=== PATIENT | female | born 1965 | race Caucasian/White ===

== ENCOUNTER 2018-08-28 12:46 | Inpatient (IN) | payer BC, OTHER ==
[~2018-08-28] VITALS: Ht 152.4 cm; Wt 143.7 kg
[~2018-08-28 12:46] MED LIST: AMLO10TA PO; AMLO5TAB6 PO; AZIT-12 PO; LASI40TA9 PO; MICA80TA PO; OMEP40CA2 PO; PRED-351 PO; SERT-138 PO
[2018-08-28] MEDS ORDERED: PANT40TA3 PO (13:17)
[2018-08-28] MEDS ORDERED: [UNRECOGNIZED DRUG - OTHER] PO (13:17)
[2018-08-28] MEDS ORDERED: IPRATROPIUM 0.5MG/ALBUTEROL 2.5MG INH SOL UD 3ML (DUONEB)(J7620) NEB ONE (13:30)
[2018-08-28] MEDS ORDERED: NS 1,000 ML IV SCH (13:33)
[2018-08-28] MEDS ORDERED: ACETAMINOPHEN 325 MG TAB PO ONE (13:45)
[2018-08-28] MEDS: IPRATROPIUM 0.5MG/ALBUTEROL 2.5MG INH SOL UD 3ML (DUONEB)(J7620) NEB PRN ×2 (13:48→14:21)
[2018-08-28 14:07] LABS: BASO % 0.6 % (0.0-1.0); EOS % 0.3 % (0.0-3.0); HEMATOCRIT 37.1 % (36.0-47.0); HEMOGLOBIN 12.3 g/dl (12.0-15.5); LYMPH % 14.5 % (24.0-44.0); MEAN CORPUSCULAR HEMOGLOBIN 30.1 pg (27.0-33.0); MEAN CORPUSCULAR HGB CONC 33.2 g/dl (32.0-36.5); MEAN CORPUSCULAR VOLUME 90.9 fl (80.0-96.0); MONO # 0.5 10^3/uL (0.0-0.8); MONO % 7.3 % (0.0-5.0); NEUTROPHILS # 5.3 10^3/uL (1.8-7.7); NEUTROPHILS % 76.2 % (36.0-66.0); PLATELET COUNT, AUTOMATED 181 10^3/uL (150-450); RED BLOOD COUNT 4.08 10^6/uL (4.00-5.40)
[2018-08-28 14:10] LABS: VENOUS BASE EXCESS 0.5 (-2.0-2.0); VENOUS HCO3 24.5 MEQ/L (23.0-27.0); VENOUS O2 SATURATION 98.3 % (60.0-80.0); VENOUS PARTIAL PRESSURE CO2 37.2 mmHg (38.0-50.0); VENOUS PARTIAL PRESSURE O2 106.8 mmHg (30.0-50.0); VENOUS PH 7.436 UNITS (7.330-7.430); VENOUS TOTAL CO2 25.6 MEQ/L (24.0-28.0)
[2018-08-28 14:19] LABS: INR 1.09; PROTHROMBIN TIME 13.8 SECONDS (11.8-14.0)
[2018-08-28 14:33] LABS: INFLUENZA A AMPLIFICATION NEGATIVE (NEGATIVE); INFLUENZA B AMPLIFICATION NEGATIVE (NEGATIVE)
[2018-08-28 14:35] LABS: ALBUMIN 3.3 GM/DL (3.2-5.2); ALT/SGPT 38 U/L (12-78); BILIRUBIN,DIRECT 0.3 MG/DL (0.0-0.2); BLOOD UREA NITROGEN 13 MG/DL (7-18); CALCIUM LEVEL 8.8 MG/DL (8.5-10.1); CARBON DIOXIDE LEVEL 26 MEQ/L (21-32); CHLORIDE LEVEL 101 MEQ/L (98-107); CK-MB VALUE MASS < 1.0 NG/ML (<3.6); CPK CREATINE PHOSPHOKINASE 148 U/L (26-192); CREATININE FOR GFR 0.81 MG/DL (0.55-1.30); GLOMERULAR FILTRATION RATE > 60.0 (>51); GLUCOSE, FASTING 132 MG/DL (70-100); MB/CK RELATIVE INDEX 0.68 (< OR =4); NT-PRO BNP 1264 PG/ML (<125); SODIUM LEVEL 134 MEQ/L (136-145); TOTAL PROTEIN 7.2 GM/DL (6.4-8.2); TROPONIN I < 0.02 NG/ML (< 0.10)
[2018-08-28] MEDS ORDERED: AZITHROMYCIN INJ 500 MG, VIAL MATE ADAPTER 1 EACH in D5W 250 ML IV ONE (15:00)
[2018-08-28] MEDS ORDERED: cefTRIAXone SOD 1 GM in D5W MINI-BAG PLUS 50 ML IV ONE (15:00)
--- NOTE | 2018-08-28 15:01 | REP ---
CHEST, TWO VIEWS: Two views of the chest performed. Cardiomegaly is noted with vascular congestion. Bilateral infiltrates are seen inferiorly. The findings suggest congestive heart failure and pulmonary edema. Electronically Signed by Dominic Blum MD 08/30/2018 10:18 A
[2018-08-28] MEDS ORDERED: AMLO10TA5 PO (15:23)
[2018-08-28] MEDS ORDERED: FURO20TA2 PO (15:23)
[2018-08-28] MEDS ORDERED: DRIS50003 PO (15:23)
[2018-08-28] MEDS ORDERED: ACET1TAB55 PO (15:23)
[2018-08-28] MEDS ORDERED: ACETAMINOPHEN TAB 650MG DOSE (2X325MG) PO PRN (16:45)
[2018-08-28] MEDS ORDERED: ONDANSETRON 4MG/2ML VIAL (J2405) IV PRN (16:45)
--- NOTE | 2018-08-28 17:17 | HPEPDOC ---
General Date of Admission 08/28/2018 Date of Service: Aug 28, 2018 Chief Complaint The patient is a 52-year-old female admitted with a reason for visit of Loss Of Appetite, Weakness, Fatigue. Source: Patient, Family, Old records Exam Limitations: No limitations Timing/Duration: Day(s) Severity: Moderate Associated Symptoms: Cough, Fever, Chills, Headaches, Loss of appetite, Nausea, Shortness of breath History of Present Illness This is a 52-year-old female whose primary presenting complaints are of shortness of breath and lightheadedness. These are accompanied by nausea and abdominal pain since Monday. She's not had any vomiting. She also reports cough, fever to 104, chills. She denies any exposures to anyone who has been ill, but then reveals that she's been around a lot of small children. Upon evaluation in the emergency room she has O2 sats as low as 73% on room air. MAXIMUM TEMPERATURE in the emergency room is 101.5. The patient is not on oxygen at home at baseline. She does have obstructive sleep apnea and uses a CPAP mask. Family endorses lower extremity swelling. She otherwise has not had any chest pain or palpitations. Home Medications Scheduled Amlodipine Besylate (Amlodipine Besylate) 10 Mg Tablet, 10 MG PO DAILY, (Reported) Dimethyl Fumarate (Tecfidera) 1 Each Capsule.dr, 240 MG PO BID, (Reported) STOPPED WHEN SHE STARTED FEELING UNWELL PER . INSTRUCTIONS Ergocalciferol (Vitamin D2) (Drisdol) 50,000 Unit Capsule, 50,000 UNIT PO QWEEK, (Reported) SATURDAYS Furosemide (Furosemide) 20 Mg Tablet, 60 MG PO DAILY, (Reported) Pantoprazole Sodium (Pantoprazole Sodium) 40 Mg Tablet.dr, 40 MG PO BID, (Reported) Sertraline HCl (Sertraline HCl) 100 Mg Tab, 150 MG PO DAILY, (Reported) Telmisartan (Micardis) 80 Mg Tab, 80 MG PO DAILY, (Reported) Scheduled PRN Acetaminophen (Acetaminophen) 325 Mg Tablet, 650 MG PO Q4H PRN for PAIN / FEVER, (Reported) Allergies Coded Allergies: No Known Allergies (Verified , 08/26/02) Past Medical History Medical History Past medical history includes: Multiple sclerosis which she was diagnosed with in 2017. She is being treated with Tecfidera. Gastroesophageal reflux disease. Essential hypertension Morbid obesity. Obstructive sleep apnea for which she sees CPAP mask. Depression with anxiety features. She has had episodes of pneumonia in the past. She last required hospitalization 4 years ago Surgical History Surgical history includes Carpal tunnel repair. 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 A-FIB/CHADSVASC A-FIB History Current/History of A-Fib/PAF?: No Current PO Anticoag Therapy: No Review of Systems Other systems Review of 10 systems is otherwise negative except as stated in the brief presentation Physical Examination General Exam: Positive: Alert, Cooperative, Mild Distress Eye Exam: Positive: PERRLA, Conjunctiva & lids normal ENT Exam: Positive: Atraumatic, Mucous membr. moist/pink, Pharynx Normal, Tongue Midline, Nares Patent Neck Exam: Positive: Supple; Negative: JVD, thyromegaly Chest Exam: Positive: Normal air movement, Other (rare coarse breath sounds; generally diminished due to body habitus, no productive cough) Heart Exam: Positive: Rate Normal, Regular Rhythm, Normal S1, Normal S2; Negative: Murmurs, Rubs Abdomen Exam: Positive: Normal bowel sounds, Soft, Other (morbid central obesity); Negative: Tenderness, Hepatospenomegaly Extremity Exam: Positive: Normal pulses, Swelling Skin Exam: Positive: Nl turgor and temperature Neuro Exam: Positive: Cranial Nerves 3-12 NL, Other (the patient reports some paresthesias to her feet and legs) Psych Exam: Positive: Mental status NL, Mood NL, Oriented x 3 Vital Signs Vital Signs Date Time Temp Pulse Resp B/P (MAP) Pulse Ox O2 Delivery O2 Flow Rate FiO2 08/28/18 16:16 76 18 94 Nasal Cannula 6.0 08/28/18 16:15 96/55 (69) 08/28/18 14:46 101.0 Laboratory Data Labs 24H Laboratory Tests 2 08/28/18 13:55: Immature Granulocyte % (Auto) 1.1, White Blood Count 7.0, Red Blood Count 4.08, Hemoglobin 12.3, Hematocrit 37.1, Mean Corpuscular Volume 90.9, Mean Corpuscular Hemoglobin 30.1, Mean Corpuscular Hemoglobin Concent 33.2, Red Cell Distribution Width 13.5, Platelet Count 181, Neutrophils (%) (Auto) 76.2H, Lymphocytes (%) (Auto) 14.5L, Monocytes (%) (Auto) 7.3H, Eosinophils (%) (Auto) 0.3, Basophils (%) (Auto) 0.6, Neutrophils # (Auto) 5.3, Lymphocytes # (Auto) 1.0L, Monocytes # (Auto) 0.5, Eosinophils # (Auto) 0.0, Basophils # (Auto) 0.0, Nucleated Red Blood Cells % (auto) 0.3H, Prothrombin Time 13.8, Prothromb Time International Ratio 1.09, Blood Gas Bicarbonate Standard 25.0, Venous Blood pH 7.436H, Venous Blood Partial Pressure CO2 37.2L, Venous Blood Partial Pressure O2 106.8H, Veno us Blood Total Carbon Dioxide 25.6, Venous Blood HCO3 24.5, Venous Blood Oxygen Saturation 98.3H, Venous Blood Base Excess 0.5, Anion Gap 7L, Glomerular Filtration Rate > 60.0, Lactic Acid Level 1.1, Calcium Level 8.8, Aspartate Amino Transf (AST/SGOT) 38H, Alanine Aminotransferase (ALT/SGPT) 38, Alkaline Phosphatase 62, Total Bilirubin 1.0, Direct Bilirubin 0.3H, Total Creatine Kinase 148, Creatine Kinase MB < 1.0, Creatine Kinase MB Relative Index 0.68, Troponin I < 0.02, AS-Fff-C-Type Natriuretic Peptide 1264H, Total Protein 7.2, Albumin 3.3, Albumin/Globulin Ratio 0.85L, Influenza Type A (RT-PCR) NEGATIVE, Influenza Type B (RT-PCR) NEGATIVE, Influenza (PCR) Comment CBC/BMP Laboratory Tests 08/28/18 13:55 Red Blood Count 4.08, Mean Corpuscular Volume 90.9, Mean Corpuscular Hemoglobin 30.1, Mean Corpuscular Hemoglobin Concent 33.2, Red Cell Distribution Width 13.5, Neutrophils (%) (Auto) 76.2 H, Lymphocytes (%) (Auto) 14.5 L, Monocytes (%) (Auto) 7.3 H, Eosinophils (%) (Auto) 0.3, Basophils (%) (Auto) 0.6, Neutrophils # (Auto) 5.3, Lymphocytes # (Auto) 1.0 L, Monocytes # (Auto) 0.5, Eosinophils # (Auto) 0.0, Basophils # (Auto) 0.0 Microbiology Microbiology 08/28/18 Blood Culture, Received Pending 08/28/18 Blood Culture, Received Pending Assessment/Plan 1. Patient is felt to have a community-acquired pneumonia given her fever, hypoxia and shortness of breath. She does not have leukocytosis or a discrete consolidation on her chest x-ray. Lactic acid is normal. She's been placed on empiric antibiotic in the form of azithromycin and ceftriaxone pending culture results. 2. Acute hypoxic respiratory failure--is initially attributed to her presumed community-acquired pneumonia. Other risk factors include her obstructive sleep apnea. Findings of cardiomegaly and interstitial infiltrate raise concern for congestive heart failure. Patient is not normally on oxygen at home but is currently requiring 6 L/m. . Plans are to evaluate her by echocardiogram. She will remain on her current diuretic of Lasix 60 mg per day. 3. Obstructive sleep apnea.--Patient is compliant with her CPAP at home and we will continue this regimen while she is in the hospital. Obstructive sleep apnea raises her risk of congestive heart failure, especially cor pulmonale. Echocardiogram evaluation is pending. 4. Multiple sclerosisthe patient is normally on Tecfidera. She has held this medication since Monday out of concern for infection. 5. Additional risk factor assessment will include looking at a glycosylated hemoglobin and a thyroid panel. If her echocardiogram reveals significant congestive heart failure. She may need additional cardiac testing as well. We will otherwise continue her baseline medication management to manage her essential hypertension, depression/anxiety and gastroesophageal reflux disease. The patient is placed inpatient status due to her hypoxia and we anticipate her length of stay will be greater than 2 midnights. Plan / VTE VTE Prophylaxis Ordered?: Yes Plan Diet: Continue Current Activity: Continue Current Medications: Start Antibiotics Respiratory: Wean Oxygen Diagnostics: Repeat Labs in AM, LUCAS ALMAZAN MD Aug 28, 2018 17:17
[2018-08-28 20:00] VITALS: BP 142/64
[2018-08-28] MEDS: ENOXAPARIN 40 MG/0.4 ML SYRINGE (J1650) SC SCH (21:37)
[2018-08-28] MEDS: PANTOPRAZOLE 40MG TAB (PROTONIX) PO SCH (21:37)
[2018-08-28 23:59] VITALS: BP 131/60
[2018-08-29] VITALS (17 sets, daily range): BP systolic 118–175; BP diastolic 57–79; O2SAT 89–96
--- NOTE | 2018-08-29 03:36 | ECGEPIP ---
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
[2018-08-29 05:57] LABS: HEMOGLOBIN 11.2 g/dl (12.0-15.5); MEAN CORPUSCULAR HEMOGLOBIN 28.6 pg (27.0-33.0); MEAN CORPUSCULAR VOLUME 89.5 fl (80.0-96.0); PLATELET COUNT, AUTOMATED 183 10^3/uL (150-450); RED BLOOD COUNT 3.91 10^6/uL (4.00-5.40); WHITE BLOOD COUNT 6.5 10^3/uL (4.0-10.0)
[2018-08-29 06:26] LABS: BLOOD UREA NITROGEN 13 MG/DL (7-18); CALCIUM LEVEL 9.1 MG/DL (8.5-10.1); CARBON DIOXIDE LEVEL 29 MEQ/L (21-32); CHLORIDE LEVEL 102 MEQ/L (98-107); CREATININE FOR GFR 0.85 MG/DL (0.55-1.30); FREE THYROXINE INDEX 2.6 % (1.3-4.8); GLOMERULAR FILTRATION RATE > 60.0 (>51); GLUCOSE, FASTING 124 MG/DL (70-100); MAGNESIUM LEVEL 2.3 MG/DL (1.8-2.4); NT-PRO BNP 497 PG/ML (<125); PHOSPHORUS LEVEL 2.1 MG/DL (2.5-4.9); POTASSIUM SERUM 3.6 MEQ/L (3.5-5.1); SODIUM LEVEL 136 MEQ/L (136-145); T UPTAKE 34 % (30-39); THYROXINE (T4) 7.7 UG/DL (4.5-12.0)
[2018-08-29] MEDS: FUROSEMIDE 20 MG TAB PO SCH (09:19)
[2018-08-29] MEDS: ENOXAPARIN 40 MG/0.4 ML SYRINGE (J1650) SC SCH (09:19)
[2018-08-29] MEDS: amLODIPine 10 MG TAB PO SCH (09:19)
[2018-08-29] MEDS: PANTOPRAZOLE 40MG TAB (PROTONIX) PO SCH ×2 (09:19→20:44)
[2018-08-29] MEDS: SERTRALINE HCL 50 MG TAB PO SCH (09:19)
[2018-08-29] MEDS: cefTRIAXone SOD 1 GM in D5W MINI-BAG PLUS 50 ML IV SCH (09:20)
[2018-08-29] MEDS: TELMISARTAN 20 MG TAB PO SCH (10:26)
[2018-08-29] MEDS: AZITHROMYCIN INJ 500 MG, VIAL MATE ADAPTER 1 EACH in D5W 250 ML IV SCH (10:27)
[2018-08-29] MEDS ORDERED: FUROSEMIDE 40 MG/4 ML VIAL (J1940) IV ONE (15:00)
--- NOTE | 2018-08-29 15:02 | IPNPDOC ---
Date Seen The patient was seen on 08/29/18. Progress Note SUBJECTIVE: Ms. Goetz is a 52-year-old female admitted with concern for community acquired pneumonia. She does not have distinct consolidation on her chest x-ray, but has had fever and chills. Of greater concern is her cardiomegaly, interstitial infiltrate, hypoxia, and peripheral edema, raising concern for congestive heart failure. The patient unfortunately received a liter of fluid in the emergency room and then received IV fluids overnight. Her shortness of breath and hypoxia have worsened. OBJECTIVE PHYSICAL EXAMINATION: VITAL SIGNS: Please see below. General: Alert, ambulatory with assistance, still mild to moderate distress. HENT exam: Her neck is supple with no adenopathy or thyromegaly, her oral mucosa is moist, she does not have any nasal congestion or drainage. Cardiovascular: Regular rate and rhythm with a normal S1 and S2. Respiratory: Patient exhibits increased respiratory effort with exertion, continues with coarse breath sounds although diminished due to her body habitus, no cough. Abdomen: Soft, nontender, morbid central obesity. Extremities: Pedal pulses are palpable, trace edema LABORATORY DATA, IMAGING STUDIES, MICROBIOLOGY: Please see below. Echocardiogram: Report is pending. DVT prophylaxis ordered?: Lovenox ASSESSMENT AND PLAN: 1. Patient is felt to have a community-acquired pneumonia given her fever, hypoxia and shortness of breath. She does not have leukocytosis or a discrete consolidation on her chest x-ray. Lactic acid is normal. She's been placed on empiric antibiotic in the form of azithromycin and ceftriaxone pending culture results. 2. Acute hypoxic respiratory failure--is initially attributed to her presumed community-acquired pneumonia. Other risk factors include her obstructive sleep apnea. Findings of cardiomegaly and interstitial infiltrate raise concern for congestive heart failure. Patient is not normally on oxygen at home. We have now had to increase her FiO2 from 6LPM to 10 LPM, given her increased respiratory effort and distress. We are waiting results of her echocardiogram to determine degree of heart failure component. Given her extra fluid load from receiving IV fluid we will give an additional dose of IV Lasix. BNP has decreased from 2173 to 1342, but this does not necessarily clinically correlate. 3. Obstructive sleep apnea.--Patient is compliant with her CPAP at home and we will continue this regimen while she is in the hospital. Obstructive sleep apnea raises her risk of congestive heart failure, especially cor pulmonale. Echocardiogram report is pending. 4. Multiple sclerosisthe patient is normally on Tecfidera. She has held this medication since Monday out of concern for infection. 5. Additional risk factor assessment will include looking at a glycosylated hemoglobin and a thyroid panel. If her echocardiogram reveals significant congestive heart failure she may need additional cardiac testing as well. We will otherwise continue her baseline medication management to manage her essential hypertension, depression/anxiety and gastroesophageal reflux disease. The patient is placed inpatient status due to her hypoxia and we anticipate her length of stay will be greater than 2 midnights. DISPOSITION: . VS, I&O, 24H, [facility] Vital Signs/I&O Vital Signs Date Time Temp Pulse Resp B/P (MAP) Pulse Ox O2 Delivery O2 Flow Rate FiO2 08/29/18 13:55 94 Nasal Cannula 10.0 08/29/18 09:19 80 175/79 08/29/18 08:00 96.8 20 I&O- Last 24 Hours up to 6 AM 08/29/18 06:00 Intake Total 240 ml Output Total 400 ml Balance -160 ml Laboratory Data 24H LABS Laboratory Tests 2 08/29/18 05:28: Nucleated Red Blood Cells % (auto) 0.0, Blood Urea Nitrogen 13, Creatinine 0.85, Sodium Level 136, Potassium Level 3.6, Chloride Level 102, Carbon Dioxide Level 29, Anion Gap 5L, Glomerular Filtration Rate > 60.0, Calcium Level 9.1, Phosphorus Level 2.1L, Magnesium Level 2.3, MF-Niz-O-Type Natriuretic Peptide 497H, Albumin 3.0L, Thyroid Stimulating Hormone (TSH) 1.110, Free Thyroxine Index 2.6, Thyroxine (T4) 7.7, Triiodothyronine (T3) Uptake 34 CBC/BMP Laboratory Tests 08/29/18 05:28 Red Blood Count 3.91 L, Mean Corpuscular Volume 89.5, Mean Corpuscular Hemoglobin 28.6, Mean Corpuscular Hemoglobin Concent 32.0, Red Cell Distribution Width 13.7, Anion Gap 5 L Microbiology Microbiology 08/28/18 Blood Culture - Preliminary, Resulted No growth after 24 hours . All specim... 08/28/18 Blood Culture - Preliminary, Resulted No growth after 24 hours . All specim... LUCAS BUCKNER MD Aug 29, 2018 15:02
[2018-08-30] VITALS (28 sets, daily range): BP systolic 119–141; BP diastolic 55–77; O2SAT 87–97
[2018-08-30 06:40] LABS: BLOOD UREA NITROGEN 12 MG/DL (7-18); CALCIUM LEVEL 9.4 MG/DL (8.5-10.1); CARBON DIOXIDE LEVEL 29 MEQ/L (21-32); CHLORIDE LEVEL 102 MEQ/L (98-107); CREATININE FOR GFR 0.71 MG/DL (0.55-1.30); GLOMERULAR FILTRATION RATE > 60.0 (>51); GLUCOSE, FASTING 102 MG/DL (70-100); NT-PRO BNP 386 PG/ML (<125); POTASSIUM SERUM 3.1 MEQ/L (3.5-5.1); SODIUM LEVEL 137 MEQ/L (136-145)
[2018-08-30] MEDS: POTASSIUM CHLORIDE 10 MEQ SR TABLET PO SCH (08:21)
[2018-08-30] MEDS: PANTOPRAZOLE 40MG TAB (PROTONIX) PO SCH ×2 (08:22→21:10)
[2018-08-30] MEDS: amLODIPine 10 MG TAB PO SCH (08:22)
[2018-08-30] MEDS: FUROSEMIDE 20 MG TAB PO SCH (08:23)
[2018-08-30] MEDS: SERTRALINE HCL 50 MG TAB PO SCH (08:23)
[2018-08-30] MEDS: cefTRIAXone SOD 1 GM in D5W MINI-BAG PLUS 50 ML IV SCH (08:23)
[2018-08-30] MEDS: TELMISARTAN 20 MG TAB PO SCH (08:24)
[2018-08-30] MEDS: ENOXAPARIN 40 MG/0.4 ML SYRINGE (J1650) SC SCH (08:24)
[2018-08-30] MEDS: AZITHROMYCIN INJ 500 MG, VIAL MATE ADAPTER 1 EACH in D5W 250 ML IV SCH (10:33)
--- NOTE | 2018-08-30 16:18 | IPNPDOC ---
Text Note Date of Service The patient was seen on 08/30/18. NOTE Ms. Goetz has had some improvement with fluid restriction and additional di uresis. We have been able to wean her FiO2 down to 8 L/m. . The patient was admitted with concern for community-acquired pneumonia. The chest x-ray and clinical findings are more consistent with congestive heart failure. OBJECTIVE PHYSICAL EXAMINATION: VITAL SIGNS: Please see below. General: Alert, ambulatory with assistance, still mild to moderate distress. HENT exam: Her neck is supple with no adenopathy or thyromegaly, her oral mucosa is moist, she does not have any nasal congestion or drainage. Cardiovascular: Regular rate and rhythm with a normal S1 and S2. Respiratory: Patient exhibits increased respiratory effort with exertion, continues with coarse breath sounds although diminished due to her body habitus, also has wheezing,no cough. Abdomen: Soft, nontender, morbid central obesity. Extremities: Pedal pulses are palpable, trace edema ASSESSMENT AND PLAN: 1. Patient is felt to have a community-acquired pneumonia given her fever, hypoxia and shortness of breath. She does not have leukocytosis or a discrete consolidation on her chest x-ray. Lactic acid is normal. She's been placed on empiric antibiotic in the form of azithromycin and ceftriaxone. Blood cultures are negative to date; she really was not producing sputum. 2. Acute hypoxic respiratory failure--is initially attributed to her presumed community-acquired pneumonia. Other risk factors include her obstructive sleep apnea. Findings of cardiomegaly and interstitial infiltrate raised concern for congestive heart failure. Patient is not normally on oxygen at home. We have now had to increase her FiO2 from 6LPM to 10 LPM, given her increased respiratory effort and distress. We are waiting results of her echocardiogram to determine degree of heart failure component. 3. Obstructive sleep apnea.--Patient is compliant with her CPAP at home and we will continue this regimen while she is in the hospital. She has required bleed in of FiO2 at 6 to 8 L/m, which she does not require at home at all. Obstructive sleep apnea raises her risk of congestive heart failure, especially cor pulmonale. Echocardiogram report is pending. 4. Multiple sclerosisthe patient is normally on Tecfidera. She has held this medication since Monday out of concern for infection. 5. Additional risk factor assessment will include looking at a glycosylated hemoglobin and a thyroid panel. If her echocardiogram reveals significant congestive heart failure she may need additional cardiac testing as well. We will otherwise continue her baseline medication management to manage her essential hypertension, depression/anxiety and gastroesophageal reflux disease. VS,Caden, I+O VS, Caden, I+O Laboratory Tests 08/30/18 05:46 Calcium Level 9.4 Vital Signs Date Time Temp Pulse Resp B/P (MAP) Pulse Ox O2 Delivery O2 Flow Rate FiO2 08/30/18 15:00 92 Nasal Cannula 8.0 08/30/18 12:19 97.6 69 19 141/67 (91) I&O- Last 24 Hours up to 6 AM 08/30/18 06:00 Intake Total 2750 ml Output Total 1300 ml Balance 1450 ml LUCAS BUCKNER MD Aug 30, 2018 16:18
[2018-08-30] MEDS ORDERED: SLF 3 ML SYR IV PRN (18:45)
[2018-08-30] MEDS: SLF 3 ML SYR IV SCH (21:10)
[2018-08-31] VITALS (25 sets, daily range): BP systolic 129–161; BP diastolic 58–80; O2SAT 91–96
[2018-08-31] MEDS ORDERED: IPRATROPIUM 0.5MG/ALBUTEROL 2.5MG INH SOL UD 3ML (DUONEB)(J7620) NEB PRN (04:45)
[2018-08-31 05:58] LABS: HEMATOCRIT 35.3 % (36.0-47.0); HEMOGLOBIN 11.2 g/dl (12.0-15.5); MEAN CORPUSCULAR HEMOGLOBIN 28.9 pg (27.0-33.0); MEAN CORPUSCULAR HGB CONC 31.7 g/dl (32.0-36.5); MEAN CORPUSCULAR VOLUME 91.2 fl (80.0-96.0); PLATELET COUNT, AUTOMATED 234 10^3/uL (150-450); RED BLOOD COUNT 3.87 10^6/uL (4.00-5.40); WHITE BLOOD COUNT 6.1 10^3/uL (4.0-10.0)
[2018-08-31] MEDS: SLF 3 ML SYR IV SCH ×3 (06:10→21:10)
[2018-08-31 06:21] LABS: BLOOD UREA NITROGEN 13 MG/DL (7-18); CALCIUM LEVEL 8.9 MG/DL (8.5-10.1); CARBON DIOXIDE LEVEL 29 MEQ/L (21-32); CHLORIDE LEVEL 102 MEQ/L (98-107); CREATININE FOR GFR 0.66 MG/DL (0.55-1.30); GLOMERULAR FILTRATION RATE > 60.0 (>51); GLUCOSE, FASTING 109 MG/DL (70-100); POTASSIUM SERUM 3.2 MEQ/L (3.5-5.1); SODIUM LEVEL 137 MEQ/L (136-145)
[2018-08-31 06:22] LABS: HEMOGLOBIN A1c 6.2 %
[2018-08-31] MEDS: amLODIPine 10 MG TAB PO SCH (08:43)
[2018-08-31] MEDS: SERTRALINE HCL 50 MG TAB PO SCH (08:43)
[2018-08-31] MEDS: POTASSIUM CHLORIDE 10 MEQ SR TABLET PO SCH (08:43)
[2018-08-31] MEDS: FUROSEMIDE 20 MG TAB PO SCH (08:43)
[2018-08-31] MEDS: PANTOPRAZOLE 40MG TAB (PROTONIX) PO SCH ×2 (08:43→21:09)
[2018-08-31] MEDS: ENOXAPARIN 40 MG/0.4 ML SYRINGE (J1650) SC SCH (08:44)
[2018-08-31] MEDS: cefTRIAXone SOD 1 GM in D5W MINI-BAG PLUS 50 ML IV SCH (08:45)
[2018-08-31] MEDS: TELMISARTAN 20 MG TAB PO SCH (08:52)
--- NOTE | 2018-08-31 09:13 | ECHO ---
DATE OF PROCEDURE: 08/29/2018 DATE OF : 1965 AGE: 52 REFERRING PROVIDER: Dr. Evonne Diaz PATIENT LOCATION: Room 3226 REASON FOR THE ECHOCARDIOGRAM: Cardiomegaly. 2-D MEASUREMENTS: IVS: 1.2 cm LV: 4.8 cm LVPW: 1.2 cm LA: 4.3 cm Aorta: 2.6 cm DOPPLER MEASUREMENTS: Peak velocity across the aortic valve: 1.9 m/s Peak velocity across the LVOT: 1.1 m/s Mitral E: 1.3, Mitral A: 0.67 with a ratio of 1.9 DOPPLER: Only mild tricuspid regurgitation detected. IMPRESSION: 1. Normal global left ventricular systolic function with probably mild concentric left ventricular hypertrophy. Assessment of the left ventricular diastolic function appeared to be normal. 2. Isolated mildly dilated left atrium, 4.3 cm. The right atrium and the right ventricle appear to be normal in size. 3. Normal aortic root. 4. A small pericardial effusion was noted, no evidence of cardiac tamponade. 5. The aortic valve, mitral valve, and tricuspid valve appear to be normal. The pulmonic valve and proximal pulmonary artery branches were not well visualized. 6. The inferior vena cava was not visualized. (repeated Doppler and impression below) DOPPLER: No significant valvular abnormalities detected but mild tricuspid regurgitation with probably mild pulmonary hypertension. IMPRESSION: 1. Normal global left ventricular systolic function. Assessment of the left ventricular diastolic function appeared to be normal but may be artifactual because there was a mildly enlarged left atrium without any significant mitral regurgitation. The dilated left atrium may be related to underlying left ventricular diastolic dysfunction. 2. Mild tricuspid regurgitation with probably mild pulmonary hypertension. 3. Small pericardial effusion, no evidence of cardiac tamponade. 4. The study was technically limited due to poor acoustic window secondary to body habitus.
[2018-08-31] MEDS: AZITHROMYCIN INJ 500 MG, VIAL MATE ADAPTER 1 EACH in D5W 250 ML IV SCH (10:26)
[2018-08-31] MEDS ORDERED: FUROSEMIDE 40 MG/4 ML VIAL (J1940) IV ONE (14:00)
--- NOTE | 2018-08-31 16:09 | IPNPDOC ---
Date Seen The patient was seen on 08/31/18. Progress Note SUBJECTIVE: This is a 52-year-old female with cough, congestion and fever. She was admitted for presumed pneumonia. However, exam and imaging is more consistent with an acute congestive heart failure exacerbation. OBJECTIVE PHYSICAL EXAMINATION: VITAL SIGNS: Please see below. General: Alert, ambulatory with assistance, still mild to moderate distress. HENT exam: Her neck is supple with no adenopathy or thyromegaly, her oral mucosa is moist, she does not have any nasal congestion or drainage. Cardiovascular: Regular rate and rhythm with a normal S1 and S2. Respiratory: Patient exhibits increased respiratory effort with exertion, continues with coarse breath sounds although diminished due to her body habitus, also has wheezing,no cough. Abdomen: Soft, nontender, morbid central obesity. Extremities: Pedal pulses are palpable, has trace to 1+ pitting edema today LABORATORY DATA, IMAGING STUDIES, MICROBIOLOGY: Please see below. Echocardiogram: Echocardiogram shows the patient may have underlying left ventricular diastolic dysfunction. Note is also made of findings consistent with mild pulmonary hypertension.. DVT prophylaxis ordered?: Lovenox ASSESSMENT AND PLAN: 1. Patient is felt to have a community-acquired pneumonia given her fever, hypoxia and shortness of breath. She does not have leukocytosis or a discrete consolidation on her chest x-ray. Lactic acid is normal. She's been placed on empiric antibiotic in the form of azithromycin and ceftriaxone. Blood cultures are negative to date; she really was not producing sputum. 2. Acute hypoxic respiratory failure--is initially attributed to her presumed community-acquired pneumonia. Other risk factors include her obstructive sleep apnea. Findings of cardiomegaly and interstitial infiltrate raised concern for congestive heart failure. Patient is not normally on oxygen at home. With diuresis we have been able to decrease her FiO2 from 10 L/m to 6 L/m. Echocardiogram is consistent with at least diastolic congestive heart failure and pulmonary hypertension. 3. Obstructive sleep apnea.--Patient is compliant with her CPAP at home and we will continue this regimen while she is in the hospital. She has required bleed in of FiO2 at 6 to 8 L/m, which she does not require at home at all. Obstructive sleep apnea raises her risk of congestive heart failure, especially cor pulmonale. We plan to obtain nocturnal pulse oximetry to determine her true nighttime oxygen need for home. 4. Multiple sclerosisthe patient is normally on Tecfidera. She has held this medication since Monday out of concern for infection. 5. Additional risk factor assessment--thyroid panel is within normal limits, hemoglobin A1c is normal at 6.2. PROBLEMS DISPOSITION: . VS, I&O, 24H, [facility] Vital Signs/I&O Vital Signs Date Time Temp Pulse Resp B/P (MAP) Pulse Ox O2 Delivery O2 Flow Rate FiO2 08/31/18 14:00 96 Nasal Cannula 6.0 08/31/18 12:00 97.0 66 22 129/58 (81) I&O- Last 24 Hours up to 6 AM 08/31/18 06:00 Intake Total 1790 ml Output Total 1200 ml Balance 590 ml Laboratory Data 24H LABS Laboratory Tests 2 08/31/18 05:36: Nucleated Red Blood Cells % (auto) 0.0, Anion Gap 6L, Glomerular Filtration Rate > 60.0, Estimated Mean Plasma Glucose 131H, Hemoglobin A1c 6.2, Blood Urea Nitrogen 13, Creatinine 0.66, Sodium Level 137, Potassium Level 3.2L, Chloride Level 102, Carbon Dioxide Level 29, Calcium Level 8.9 CBC/BMP Laboratory Tests 08/31/18 05:36 Red Blood Count 3.87 L, Mean Corpuscular Volume 91.2, Mean Corpuscular Hemoglo bin 28.9, Mean Corpuscular Hemoglobin Concent 31.7 L, Red Cell Distribution Width 13.6, Calcium Level 8.9 Microbiology Microbiology 08/28/18 Blood Culture - Preliminary, Resulted No Growth after 72 hours. All specime... 08/28/18 Blood Culture - Preliminary, Resulted No Growth after 72 hours. All specime... LUCAS BUCKNER MD Aug 31, 2018 16:09
[2018-08-31] MEDS: NYSTATIN 100,000 UNITS/GM TOPICAL PWD 15 GM TOP SCH (21:10)
[2018-09-01] VITALS (24 sets, daily range): BP systolic 136–157; BP diastolic 52–72; O2SAT 90–97
[2018-09-01 05:51] LABS: ABG BASE EXCESS 3.5 (-2.0-2.0); ABG HCO3 28.6 MEQ/L (22.0-26.0); ABG O2 SATURATION 96.7 % (95.0-99.0); ABG PARTIAL PRESSURE CO2 45.8 mmHg (35.0-45.0); ABG PARTIAL PRESSURE O2 85.2 mmHg (75.0-100.0); ABG STANDARD HCO3 27.6 MEQ/L (22.0-26.0); ABG pH (ARTERIAL) 7.414 UNITS (7.350-7.450)
[2018-09-01] MEDS: SLF 3 ML SYR IV SCH ×3 (05:55→21:58)
[2018-09-01 06:51] LABS: BLOOD UREA NITROGEN 11 MG/DL (7-18); CALCIUM LEVEL 9.8 MG/DL (8.5-10.1); CARBON DIOXIDE LEVEL 32 MEQ/L (21-32); CHLORIDE LEVEL 104 MEQ/L (98-107); CREATININE FOR GFR 0.66 MG/DL (0.55-1.30); GLOMERULAR FILTRATION RATE > 60.0 (>51); GLUCOSE, FASTING 109 MG/DL (70-100); NT-PRO BNP 200 PG/ML (<125); POTASSIUM SERUM 3.2 MEQ/L (3.5-5.1); SODIUM LEVEL 140 MEQ/L (136-145)
[2018-09-01] MEDS ORDERED: POTASSIUM CHLORIDE 10 MEQ SR TABLET PO ONE (10:00)
[2018-09-01] MEDS: POTASSIUM CHLORIDE 10 MEQ SR TABLET PO SCH (10:16)
[2018-09-01] MEDS: SERTRALINE HCL 50 MG TAB PO SCH (10:17)
[2018-09-01] MEDS: FUROSEMIDE 20 MG TAB PO SCH (10:17)
[2018-09-01] MEDS: PANTOPRAZOLE 40MG TAB (PROTONIX) PO SCH ×2 (10:18→21:57)
[2018-09-01] MEDS: amLODIPine 10 MG TAB PO SCH (10:19)
[2018-09-01] MEDS: ENOXAPARIN 40 MG/0.4 ML SYRINGE (J1650) SC SCH (10:19)
[2018-09-01] MEDS: NYSTATIN 100,000 UNITS/GM TOPICAL PWD 15 GM TOP SCH ×2 (10:20→21:56)
[2018-09-01] MEDS: cefTRIAXone SOD 1 GM in D5W MINI-BAG PLUS 50 ML IV SCH (10:20)
[2018-09-01] MEDS: AZITHROMYCIN INJ 500 MG, VIAL MATE ADAPTER 1 EACH in D5W 250 ML IV SCH (11:27)
[2018-09-01] MEDS: TELMISARTAN 20 MG TAB PO SCH (11:27)
--- NOTE | 2018-09-01 19:48 | IPNPDOC ---
Text Note Date of Service The patient was seen on 09/01/18. NOTE She has much improved. Her respiratory status. She is breathing easier and more tolerated of activity. She does not feel as short of breath. Of interest, we did give her an additional dose of Lasix yesterday. We have now weaned her FiO2 down to 4 L/m. Patient was admitted with acute hypoxic respiratory failure. Physical exam: General: Alert, ambulatory with assistance, still mild to moderate distress. HENT exam: Her neck is supple with no adenopathy or thyromegaly, her oral mucosa is moist, she does not have any nasal congestion or drainage. Cardiovascular: Regular rate and rhythm with a normal S1 and S2. Respiratory: coarse breath sounds are decreased although diminished due to her body habitus, wheezing is also resolved for now Abdomen: Soft, nontender, morbid central obesity. Extremities: Pedal pulses are palpable, pedal edema has again decreased to trace. ASSESSMENT AND PLAN: 1. Patient is felt to have a community-acquired pneumonia given her fever, hypoxia and shortness of breath. She does not have leukocytosis or a discrete consolidation on her chest x-ray. Lactic acid is normal. She's been placed on empiric antibiotic in the form of azithromycin and ceftriaxone. Blood cultures are negative to date; she really was not producing sputum. 2. Acute hypoxic respiratory failure--was initially attributed to her presumed community-acquired pneumonia. Other risk factors include her obstructive sleep apnea. Findings of cardiomegaly and interstitial infiltrate raised concern for congestive heart failure. Patient is not normally on oxygen at home. With diuresis we have been able to decrease her FiO2 from 6 L/m to 4 L/m. Echocardiogram is consistent with at least diastolic congestive heart failure and pulmonary hypertension. 3. Obstructive sleep apnea.--Patient is compliant with her CPAP at home and we will continue this regimen while she is in the hospital. She has required bleed in of FiO2 at 6 to 8 L/m, which she does not require at home at all. Obstructive sleep apnea raises her risk of congestive heart failure, especially cor pulmonale. We plan to obtain nocturnal pulse oximetry to determine her true nighttime oxygen need for home. 4. Multiple sclerosisthe patient is normally on Tecfidera. She has held this medication since Monday out of concern for infection. VS,Fishbone, I+O VS, Fishbone, I+O Laboratory Tests 09/01/18 06:04 Calcium Level 9.8 Vital Signs Date Time Temp Pulse Resp B/P (MAP) Pulse Ox O2 Delivery O2 Flow Rate FiO2 09/01/18 16:00 90 Nasal Cannula 2.0 09/01/18 16:00 98.8 69 22 144/72 (96) I&O- Last 24 Hours up to 6 AM 09/01/18 06:00 Intake Total 1320 ml Output Total 1600 ml Balance -280 ml LUCAS BUCKNER MD Sep 01, 2018 19:48
[2018-09-02] VITALS (9 sets, daily range): BP systolic 145–149; BP diastolic 65–82; O2SAT 91–95
[2018-09-02] MEDS: SLF 3 ML SYR IV SCH ×3 (05:24→21:54)
[2018-09-02 06:19] LABS: BLOOD UREA NITROGEN 13 MG/DL (7-18); CALCIUM LEVEL 9.4 MG/DL (8.5-10.1); CARBON DIOXIDE LEVEL 30 MEQ/L (21-32); CHLORIDE LEVEL 106 MEQ/L (98-107); CREATININE FOR GFR 0.66 MG/DL (0.55-1.30); GLOMERULAR FILTRATION RATE > 60.0 (>51); GLUCOSE, FASTING 116 MG/DL (70-100); SODIUM LEVEL 142 MEQ/L (136-145)
[2018-09-02] MEDS: cefTRIAXone SOD 1 GM in D5W MINI-BAG PLUS 50 ML IV SCH (08:59)
[2018-09-02] MEDS: POTASSIUM CHLORIDE 10 MEQ SR TABLET PO SCH (09:00)
[2018-09-02] MEDS: ENOXAPARIN 40 MG/0.4 ML SYRINGE (J1650) SC SCH (09:00)
[2018-09-02] MEDS: TELMISARTAN 20 MG TAB PO SCH (09:00)
[2018-09-02] MEDS: SERTRALINE HCL 50 MG TAB PO SCH (09:01)
[2018-09-02] MEDS: PANTOPRAZOLE 40MG TAB (PROTONIX) PO SCH ×2 (09:01→21:48)
[2018-09-02] MEDS: amLODIPine 10 MG TAB PO SCH (09:01)
[2018-09-02] MEDS: FUROSEMIDE 20 MG TAB PO SCH (09:01)
[2018-09-02] MEDS: NYSTATIN 100,000 UNITS/GM TOPICAL PWD 15 GM TOP SCH ×2 (09:02→21:00)
[2018-09-02] MEDS: AZITHROMYCIN INJ 500 MG, VIAL MATE ADAPTER 1 EACH in D5W 250 ML IV SCH (10:39)
--- NOTE | 2018-09-02 15:14 | IPNPDOC ---
Text Note Date of Service The patient was seen on 09/02/18. NOTE This is a 52 year-old female admitted with acute hypoxic respiratory failure. Her respiratory status continues to improve in response to a diuretic regimen. She is becoming more tolerant of activity. We continues to be able to wean her FiO2; it is now down to 2 L/m. Physical exam: General: Alert, ambulatory with assistance HENT exam: Her neck is supple with no adenopathy or thyromegaly, her oral mucosa is moist, she does not have any nasal congestion or drainage. Cardiovascular: Regular rate and rhythm with a normal S1 and S2. Respiratory: Coarse breath sounds and wheezing are now resolved with good air movement and no active cough. Abdomen: Soft, nontender, morbid central obesity. Extremities: Pedal pulses are palpable, pedal edema remains trace. ASSESSMENT AND PLAN: 1. Patient was felt to have a community-acquired pneumonia given her fever, hypoxia and shortness of breath. She does not have leukocytosis or a discrete consolidation on her chest x-ray. Lactic acid was normal. She's been placed on empiric antibiotic in the form of azithromycin and ceftriaxone. Blood cultures are negative to date; she really was not producing sputum. 2. Acute hypoxic respiratory failure--was initially attributed to her presumed community-acquired pneumonia. Other risk factors include her obstructive sleep apnea. Findings of cardiomegaly and interstitial infiltrate raised concern for congestive heart failure. Patient is not normally on oxygen at home. With diuresis we have been able to decrease her FiO2 down to 2 L/m. Echocardiogram is consistent with at least diastolic congestive heart failure and pulmonary hypertension. 3. Obstructive sleep apnea.--Patient is compliant with her CPAP at home and we will continue this regimen while she is in the hospital. She had required bleed in of FiO2 at 8 L/m at admission which she did not require at home at all. Obstructive sleep apnea raises her risk of congestive heart failure, especially cor pulmonale. We plan to obtain nocturnal pulse oximetry to determine her true nighttime oxygen need for home. We have managed to wean her FiO2 down to 2 L/m. 4. Multiple sclerosisthe patient is normally on Tecfidera. She has held this medication since Monday out of concern for infection. VS,Fishbone, I+O VS, Fishbone, I+O Laboratory Tests 09/02/18 05:21 Calcium Level 9.4 Vital Signs Date Time Temp Pulse Resp B/P (MAP) Pulse Ox O2 Delivery O2 Flow Rate FiO2 09/02/18 12:00 97.6 68 18 145/73 (97) 97 3.0 09/02/18 02:00 BIPAP/CPAP I&O- Last 24 Hours up to 6 AM 09/02/18 05:59 Intake Total 1625 ml Output Total 800 ml Balance 825 ml LUCAS BUCKNER MD Sep 02, 2018 15:14
[2018-09-03 04:00] VITALS: BP 136/61
[2018-09-03 05:59] LABS: HEMATOCRIT 37.4 % (36.0-47.0); HEMOGLOBIN 11.8 g/dl (12.0-15.5); MEAN CORPUSCULAR HEMOGLOBIN 28.4 pg (27.0-33.0); MEAN CORPUSCULAR HGB CONC 31.6 g/dl (32.0-36.5); MEAN CORPUSCULAR VOLUME 89.9 fl (80.0-96.0); PLATELET COUNT, AUTOMATED 388 10^3/uL (150-450); RED BLOOD COUNT 4.16 10^6/uL (4.00-5.40); WHITE BLOOD COUNT 8.1 10^3/uL (4.0-10.0)
[2018-09-03] MEDS: SLF 3 ML SYR IV SCH ×2 (06:45→14:25)
[2018-09-03 08:00] VITALS: BP 165/77
[2018-09-03] MEDS: SERTRALINE HCL 50 MG TAB PO SCH (08:06)
[2018-09-03] MEDS: POTASSIUM CHLORIDE 10 MEQ SR TABLET PO SCH (08:06)
[2018-09-03] MEDS: cefTRIAXone SOD 1 GM in D5W MINI-BAG PLUS 50 ML IV SCH (08:06)
[2018-09-03] MEDS: TELMISARTAN 20 MG TAB PO SCH (08:06)
[2018-09-03] MEDS: NYSTATIN 100,000 UNITS/GM TOPICAL PWD 15 GM TOP SCH (08:06)
[2018-09-03 08:07] VITALS: BP 167/77
[2018-09-03] MEDS: amLODIPine 10 MG TAB PO SCH (08:07)
[2018-09-03] MEDS: ENOXAPARIN 40 MG/0.4 ML SYRINGE (J1650) SC SCH (08:07)
[2018-09-03] MEDS: FUROSEMIDE 20 MG TAB PO SCH (08:07)
[2018-09-03] MEDS: PANTOPRAZOLE 40MG TAB (PROTONIX) PO SCH (08:07)
[2018-09-03] MEDS: AZITHROMYCIN INJ 500 MG, VIAL MATE ADAPTER 1 EACH in D5W 250 ML IV SCH (09:09)
[2018-09-03 12:00] VITALS: BP 162/76
[2018-09-03 16:00] VITALS: BP 140/65
[2018-09-03] MEDS ORDERED: FURO20TA2 PO (16:22)
[2018-09-03] MEDS ORDERED: KLOR10TA76 PO (16:22)
[2018-09-03] MEDS ORDERED: NYAM10003 TOP (16:22)
--- NOTE | 2018-09-03 23:15 | DS.PDOC ---
Discharge Summary General Date of Admission Aug 28, 2018 at 16:36 Date of Discharge 09/03/2018 Discharge Summary PROCEDURES PERFORMED DURING STAY: Echocardiogram:Showed concentric left ventricular hypertrophy, diastolic dysfunction, pulmonary hypertension. ADMITTING DIAGNOSES: 1. Acute hypoxic respiratory failure. DISCHARGE DIAGNOSES: 1. Acute hypoxic respiratory failure resolved, febrile illness attributed to pneumonia, resolved new diagnosis of chronic diastolic congestive heart failure, pulmonary hypertension, gastroesophageal reflux disease, essential hypertension, morbid obesity, obstructive sleep apnea, depression with anxiety features, multiple sclerosis. COMPLICATIONS/CHIEF COMPLAINT: Gerd,Hypoxia,Ms,Morbid Obesity,Pneumonia. HISTORY OF PRESENT ILLNESS/HOSPITAL COURSE: This is a 52-year-old female with underlying obstructive sleep apnea, for which she sleeps with a CPAP mask. The patient developed shortness of breath, lightheadedness, nausea, abdominal pain. It was accompanied by cough, chills and fever to 104. Upon arrival to the emergency room she had O2 sats as low as 73%. However, on evaluation, patient was noted to have lower extremity swelling. She did not have focal infiltrates. Her x-ray but rather showed signs of pulmonary edema and cardiomegaly. She also had an elevated BnP. While there were concerns for pulmonary infection, there were greater concerns for possible congestive heart failure. The patient was admitted to the [facility] floor. She was placed on fluid restriction and started with diuresis. She was also given empiric antibiotics in the form of ceftriaxone and azithromycin. The patient defervesced fairly rapidly. The patient did not have a leukocytosis and cultures never revealed a discrete organism. The patient's peripheral edema decreased. Her respiratory status improved. Echocardiogram supported finding of diastolic congestive heart failure. Patient responded to appropriate therapy with diuretics. Patient had residual O2 requirement; she was noted to have room air O2 sats of 83% that improved to 95% with oxygen at 2 L/m. Arrangements were made for her to have oxygen at 2 L/m at home. Patient also has underlying history of multiple sclerosis. As she felt she was ill, she stopped taking her usual Tecfidera on the advice of her doctor. She can resume this when she goes home.. DISCHARGE MEDICATIONS: Please see below. ALLERGIES: Please see below. PHYSICAL EXAMINATION ON DISCHARGE: VITAL SIGNS: Please see below. GENERAL: The patient is much improved at discharge HEENT: Neck is supple with no adenopathy or thyromegaly CARDIOVASCULAR EXAMINATION: Regular rate and rhythm with a normal S1 and S2 RESPIRATORY EXAMINATION: Clear to auscultation with good air movement ABDOMINAL EXAMINATION: Abdomen is soft with remarkable central obesity, exam is otherwise benign EXTREMITIES: Pedal edema is resolved NEUROLOGICAL EXAMINATION: No focal neuromotor or sensory deficit LABORATORY DATA: Please see below. IMAGING: Cardiomegaly is noted with vascular congestion. Bilateral infiltrates are seen inferiorly. The findings suggest congestive heart failure and pulmonary edema. Electronically Signed by Dominic Blum MD 08/30/2018 10:18 A PROGNOSIS: ACTIVITY: As tolerated. DIET: As tolerated DISCHARGE PLAN: Patient is to be discharged home. She will follow-up with her primary care provider Itzel Chisholm in 1-2 weeks. She may also follow with her global marketing specialist, Dr. Lara. Recommendations are that she not return to work for about 2 weeks. DISPOSITION: 01 Home, Self-Care. DISCHARGE INSTRUCTIONS: 1. . ITEMS TO FOLLOWUP ON ON OUTPATIENT: 1. . DISCHARGE CONDITION: Stable. TIME SPENT ON DISCHARGE: Greater than 40 minutes. Vital Signs/I&Os Vital Signs Date Time Temp Pulse Resp B/P (MAP) Pulse Ox O2 Delivery O2 Flow Rate FiO2 09/03/18 16:42 96 09/03/18 16:00 97.4 70 18 140/65 (90) 2.0 09/02/18 02:00 BIPAP/CPAP I&O- Last 24 Hours up to 6 AM 09/03/18 06:00 Intake Total 900 ml Output Total 1950 ml Balance -1050 ml Laboratory Data Labs 24H Laboratory Tests 2 09/03/18 05:31: Nucleated Red Blood Cells % (auto) 0.2H CBC/BMP Laboratory Tests 09/03/18 05:31 Red Blood Count 4.16, Mean Corpuscular Volume 89.9, Mean Corpuscular Hemoglobin 28.4, Mean Corpuscular Hemoglobin Concent 31.6 L, Red Cell Distribution Width 13.4 Microbiology Microbiology 08/28/18 Blood Culture - Final, Complete NO GROWTH AFTER 5 DAYS 08/28/18 Blood Culture - Final, Complete NO GROWTH AFTER 5 DAYS Discharge Medications Scheduled Amlodipine Besylate (Amlodipine Besylate) 10 Mg Tablet, 10 MG PO DAILY, (Reported) Dimethyl Fumarate (Tecfidera) 1 Each Capsule., 240 MG PO BID, (Reported) STOPPED WHEN SHE STARTED FEELING UNWELL PER INSTRUCTIONS Ergocalciferol (Vitamin D2) (Drisdol) 50,000 Unit Capsule, 50,000 UNIT PO QWEEK, (Reported) SATURDAYS Furosemide (Furosemide) 20 Mg Tablet, 40 MG PO BID Nystatin (Nyamyc) 15 Gm Powder, 1 DOSE TOP BID Pantoprazole Sodium (Pantoprazole Sodium) 40 Mg Tablet.dr, 40 MG PO BID, (Reported) Potassium Chloride (Klor-Con M10) 10 Meq Tab.er.prt, 20 MEQ PO BID Sertraline HCl (Sertraline HCl) 100 Mg Tab, 150 MG PO DAILY, (Reported) Telmisartan (Micardis) 80 Mg Tab, 80 MG PO DAILY, (Reported) Scheduled PRN Acetaminophen (Acetaminophen) 325 Mg Tablet, 650 MG PO Q4H PRN for PAIN / FEVER, (Reported) Allergies Coded Allergies: No Known Allergies (Verified , 08/26/02) LUCAS BUCKNER MD Sep 03, 2018 23:15
--- NOTE | 2018-09-04 16:32 | NOCOX ---
DATE OF PROCEDURE: 08/31/2018 into the morning of 09/01/2018. Study apparently was done on continuous positive airway pressure (CPAP) of an unknown pressure with a four-liter nasal cannula bleed in. Mean oxygen saturation for the study 96.6%. Lowest reliably recorded oxygen saturation 92%. Some artifact was identified. In general, oxygen saturation showed minimal variability and stayed in and around 92 to 95%. IMPRESSION: Acceptable oxygen saturations on the above settings.
== END 2018-09-03 19:11 | disposition home or self-care (01) | DRG 133 ==
LOC: M ED 12:46 → M ED INP 16:36 → M PCU 20:19
PROVIDERS: ADMIT Internal Medicine; ATTEND Internal Medicine
DX: J96.01 Acute respiratory failure with hypoxia (principal); J18.9 Pneumonia, unspecified organism; I27.20 Pulmonary hypertension, unspecified; I11.0 Hypertensive heart disease with heart failure; E66.01 Morbid (severe) obesity due to excess calories; G35 Multiple sclerosis; I50.32 Chronic diastolic (congestive) heart failure; K21.9 Gastro-esophageal reflux disease without esophagitis; G47.33 Obstructive sleep apnea (adult) (pediatric); F32.9 Major depressive disorder, single episode, unspecified; F41.9 Anxiety disorder, unspecified; Z79.899 Other long term (current) drug therapy

== ENCOUNTER → 2018-10-18 | Outpatient (CLI) | payer OTHER ==
[~2018-10-18] MED LIST changes: +ACET1TAB55 PO; +AMLO10TA5 PO; +DRIS50003 PO; +FURO20TA2 PO; +KLOR10TA76 PO; +NYAM10003 TOP; -OMEP40CA2 PO; +OMEP40CA97 PO; +PANT40TA3 PO; +[UNRECOGNIZED DRUG - OTHER] PO
--- NOTE | 2018-10-18 20:02 | REP ---
PA and lateral chest: Comparisons are 08/28/2018 and 05/11/2015. There is chronic cardiomegaly, unchanged. There is increased density in the lung bases bilaterally. This is nonspecific and could be artifact from large patient body size or could represent bibasilar infiltrates. However, the appearance has improved from its 08/28/2018. The karri, mediastinum, skeletal structures are unremarkable. Chronic cardiomegaly. Bibasilar densities as described. Electronically Signed by Dominic Omalley MD 10/18/2018 07:53 P
== END ==
LOC: M SMT 14:52
PROVIDERS: ATTEND Physician Assistant
DX: R06.00 Dyspnea, unspecified (principal); R91.8 Other nonspecific abnormal finding of lung field

== ENCOUNTER → 2019-01-04 | Outpatient (CLI) | payer MEDICAID ==
--- NOTE | 2019-01-04 11:59 | REP ---
MRI brain: 01/04/2019. Indication: Multiple sclerosis. Comparison: None. Technique: Multiplanar short and long TR sequences of the brain were obtained without IV Gadolinium. New findings: Image quality is degraded by patient motion. No areas of restricted diffusion are detected to suggest active demyelination. There is no intracranial mass effect or hydrocephalous. The craniocervical junction is unremarkable. There are multiple areas of elevated T2 signal within the cerebral hemisphere white matter particularly involving the deep white matter of the parietal lobes. Impression: Findings consistent with the provided clinical diagnosis of multiple sclerosis without MRI evidence of active demyelination. There is no evidence of PML. Electronically Signed by Beck Smalls DO 01/04/2019 11:51 A
== END ==
LOC: M PLARAD 08:25
PROVIDERS: ATTEND Psychiatry & Neurology Neurology
DX: G35 Multiple sclerosis (principal)

== ENCOUNTER → 2019-11-07 | Outpatient (CLI) | payer MEDICAID, OTHER ==
[~2019-11-07] MED LIST changes: +ALBU83IN INH; -AMLO10TA5 PO; +AMLO1TAB24 PO; +AMLO1TAB25 PO; -AMLO5TAB6 PO; +K-TA10TA PO; +LOSA100T50 PO; +LOSA50TA88 PO; +PANT40TA29 PO; -PANT40TA3 PO; +SPIR-10 PO; +TORS20TA2 PO
== END ==
LOC: M LABSMTC 11:23
PROVIDERS: ATTEND Anesthesiology
DX: Z01.812 Encounter for preprocedural laboratory examination (principal); Z20.828 Contact with and (suspected) exposure to other viral communicable diseases
CPT/HCPCS: C9803; U0003

== ENCOUNTER 2019-11-12 07:02 | Day surgery (SDC) | payer OTHER ==
[~2019-11-12] VITALS: Ht 177.8 cm; Wt 133.4 kg
[~2019-11-12 07:02] MED LIST changes: +NS 1,000 ML IV ONE
[2019-11-12] MEDS ORDERED: LIDOCAINE 2% 100MG/5ML SDV (FOR ANES.) As Ordered ONE (08:28)
[2019-11-12] MEDS ORDERED: propofoL 200 MG/20 ML VIAL As Ordered ONE (08:28)
--- NOTE | 2019-11-12 08:53 | ROOR ---
Patient Name: Za Goetz Procedure Date: 11/12/2019 8:13 AM Date of : 1965 Age: 54 Room: [facility] Gender: Female Note Status: Finalized Procedure: Colonoscopy Indications: Screening for colorectal malignant neoplasm Providers: Jose Elias Coello MD Referring MD: REBEL CALVERT DO Requesting Provider: Medicines: Monitored Anesthesia Care Complications: No immediate complications. Procedure: Pre-Anesthesia Assessment: - Prior to the procedure, a History and Physical was performed, and patient medications and allergies were reviewed. The patient is competent. The risks and benefits of the procedure and the sedation options and risks were discussed with the patient. All questions were answered and informed consent was obtained. Patient identification and proposed procedure were verified by the physician, the nurse and the anesthesiologist in the procedure room. Mental Status Examination: alert and oriented. Airway Examination: normal oropharyngeal airway and neck mobility. Respiratory Examination: clear to auscultation. CV Examination: normal. Prophylactic Antibiotics: The patient does not require prophylactic antibiotics. Prior Anticoagulants: The patient has taken no previous anticoagulant or antiplatelet agents. ASA Grade Assessment: II - A patient with mild systemic disease. After reviewing the risks and benefits, the patient was deemed in satisfactory condition to undergo the procedure. The anesthesia plan was to use monitored anesthesia care (MAC). Immediately prior to administration of medications, the patient was re-assessed for adequacy to receive sedatives. The heart rate, respiratory rate, oxygen saturations, blood pressure, adequacy of pulmonary ventilation, and response to care were monitored throughout the procedure. The physical status of the patient was re-assessed after the procedure. The Colonoscope was introduced through the anus and advanced to the terminal ileum, with identification of the appendiceal orifice and IC valve. The colonoscopy was performed without difficulty. The patient tolerated the procedure well. The quality of the bowel preparation was good. The terminal ileum, ileocecal valve, appendiceal orifice, and rectum were photographed. Scope insertion time was 3 minutes. Scope withdrawal time was 10 minutes. The total duration of the procedure was 14 minutes. Findings: The perianal and digital rectal examinations were normal. The terminal ileum appeared normal. Three sessile polyps were found in the rectum and ascending colon. The polyps were 5 to 6 mm in size. These polyps were removed with a cold snare. Resection and retrieval were complete. Verification of patient identification for the specimen was done by the physician and nurse using the patient's name, date and medical record number. Estimated blood loss was minimal. Multiple small and large-mouthed diverticula were found in the sigmoid colon. There was no evidence of diverticular bleeding. Non-bleeding external and internal hemorrhoids were found during retroflexion. The hemorrhoids were medium-sized. Impression: - The examined portion of the ileum was normal. - Three 5 to 6 mm polyps in the rectum and in the ascending colon, removed with a cold snare. Resected and retrieved. - Moderate diverticulosis in the sigmoid colon. There was no evidence of diverticular bleeding. - Non-bleeding external and internal hemorrhoids. Recommendation: - Patient has a contact number available for emergencies. The signs and symptoms of potential delayed complications were discussed with the patient. Return to normal activities tomorrow. Written discharge instructions were provided to the patient. - High fiber diet. - Continue present medications. - Await pathology results. - Repeat colonoscopy in 3 - 5 years for surveillance based on pathology results. - Telephone GI clinic for pathology results in 2 weeks. - Return to primary care physician. Jose Elias Coello MD Jose Elias Coello MD 11/12/2019 8:52:49 AM Electronically signed by Jose Elias Coello MD Number of Addenda: 0 Note Initiated On: 11/12/2019 8:13 AM Estimated Blood Loss: Estimated blood loss was minimal.
[2019-11-12 09:00] VITALS: BP 121/65
== END 2019-11-12 09:21 | disposition home or self-care (01) ==
LOC: M OPP 07:02
PROVIDERS: ATTEND Internal Medicine Gastroenterology
DX: Z12.11 Encounter for screening for malignant neoplasm of colon (principal); K62.1 Rectal polyp; K63.5 Polyp of colon; K57.30 Diverticulosis of large intestine without perforation or abscess without bleeding; K64.8 Other hemorrhoids; G35 Multiple sclerosis; G47.30 Sleep apnea, unspecified; I50.32 Chronic diastolic (congestive) heart failure; I11.0 Hypertensive heart disease with heart failure; E66.01 Morbid (severe) obesity due to excess calories; Z79.899 Other long term (current) drug therapy; Z88.8 Allergy status to other drugs, medicaments and biological substances; Z91.030 Bee allergy status

== ENCOUNTER 2020-01-14 10:29 | Outpatient (CLI) | payer OTHER ==
[~2020-01-14] VITALS: Ht 152.4 cm; Wt 133.3 kg
[~2020-01-14 10:29] MED LIST changes: -NS 1,000 ML IV ONE
[2020-01-14] MEDS ORDERED: methylPREDNISolone 125MG 2ML VIAL IV ONE (10:30)
[2020-01-14] MEDS ORDERED: ACETAMINOPHEN TAB 650MG DOSE (2X325MG) PO ONE (10:30)
[2020-01-14] MEDS ORDERED: diphenhydrAMINE 25MG CAP PO ONE (10:30)
[2020-01-14] MEDS ORDERED: OCRELIZUMAB 300 MG in NS 250 ML IV ONE (10:30)
[2020-01-14 10:51] VITALS: BP 169/89
[2020-01-14 12:41] VITALS: BP 154/63
[2020-01-14 13:00] VITALS: BP 140/80
[2020-01-14 13:29] VITALS: BP 144/79
[2020-01-14 14:25] VITALS: BP 128/53
[2020-01-14 15:00] VITALS: BP 134/65
== END 2020-01-14 15:00 | disposition home or self-care (01) ==
LOC: M INFU 10:29
PROVIDERS: ATTEND Psychiatry & Neurology Neurology
DX: G35 Multiple sclerosis (principal); Z88.8 Allergy status to other drugs, medicaments and biological substances
CPT/HCPCS: 96365; 96366; 96375; J2350; J2930

== ENCOUNTER 2020-01-29 10:06 | Outpatient (CLI) | payer OTHER ==
[~2020-01-29] VITALS: Ht 177.8 cm; Wt 133.3 kg
[2020-01-29 10:10] VITALS: BP 143/77
[2020-01-29] MEDS ORDERED: methylPREDNISolone 125MG 2ML VIAL IV ONE (10:30)
[2020-01-29] MEDS ORDERED: diphenhydrAMINE 25MG CAP PO ONE (10:30)
[2020-01-29] MEDS ORDERED: ACETAMINOPHEN TAB 650MG DOSE (2X325MG) PO ONE (10:30)
[2020-01-29] MEDS ORDERED: OCRELIZUMAB 300 MG in NS 250 ML IV ONE (10:30)
[2020-01-29 11:50] VITALS: BP 140/70
[2020-01-29 12:20] VITALS: BP 141/63
[2020-01-29 14:30] VITALS: BP 135/76
[2020-01-29 14:45] VITALS: BP 177/80
== END 2020-01-29 14:45 | disposition home or self-care (01) ==
LOC: M INFU 10:06
PROVIDERS: ATTEND Psychiatry & Neurology Neurology
DX: G35 Multiple sclerosis (principal); Z88.9 Allergy status to unspecified drugs, medicaments and biological substances
CPT/HCPCS: 96365; 96366; 96375; J2350; J2930

== ENCOUNTER 2020-07-27 10:07 | Outpatient (CLI) | payer OTHER ==
[~2020-07-27 10:07] MED LIST changes: +ACETAMINOPHEN TAB 650MG DOSE (2X325MG) PO ONE; +OCRELIZUMAB 600 MG in NS 500 ML IV ONE; +diphenhydrAMINE 25MG CAP PO ONE; +methylPREDNISolone 125MG 2ML VIAL IV ONE
[2020-07-27 10:20] VITALS: BP 140/66
[2020-07-27 11:20] VITALS: BP 131/60
[2020-07-27 11:50] VITALS: BP 118/56
[2020-07-27 12:20] VITALS: BP 122/70
[2020-07-27 12:50] VITALS: BP 127/60
[2020-07-27 14:55] VITALS: BP 139/64
== END 2020-07-27 14:55 | disposition home or self-care (01) ==
LOC: M INFU 10:07
PROVIDERS: ATTEND Psychiatry & Neurology Neurology
DX: G35 Multiple sclerosis (principal); Z88.8 Allergy status to other drugs, medicaments and biological substances
CPT/HCPCS: 96365; 96366; 96375; J2350; J2930

== ENCOUNTER 2021-01-25 10:17 | Outpatient (CLI) | payer OTHER ==
[2021-01-25] VITALS (7 sets, daily range): BP systolic 103–136; BP diastolic 50–70
[~2021-01-25] VITALS: Ht 152.4 cm; Wt 135.0 kg
[~2021-01-25 10:17] MED LIST changes: -KLOR10TA76 PO; +OMEP40CA4 PO; -OMEP40CA97 PO; +POTA-136 PO
== END 2021-01-25 15:30 | disposition home or self-care (01) ==
LOC: M INFU 10:17
PROVIDERS: ATTEND Psychiatry & Neurology Neurology
DX: G35 Multiple sclerosis (principal); Z88.1 Allergy status to other antibiotic agents
CPT/HCPCS: 96365; 96366; 96375; J2350; J2930

== ENCOUNTER 2021-07-23 09:16 | Outpatient (CLI) | payer MEDICARE, OTHER ==
[~2021-07-23] VITALS: Ht 152.4 cm; Wt 132.0 kg
[2021-07-23] VITALS (7 sets, daily range): BP systolic 118–151; BP diastolic 55–70
[~2021-07-23 09:16] MED LIST changes: +ALBU2.5V10 INH; -ALBU83IN INH; +LOSA100T45 PO; -LOSA100T50 PO; +LOSA50TA28 PO; -LOSA50TA88 PO
== END 2021-07-23 14:25 | disposition home or self-care (01) ==
LOC: M INFU 09:16
PROVIDERS: ATTEND Psychiatry & Neurology Neurology
DX: G35 Multiple sclerosis (principal); Z88.8 Allergy status to other drugs, medicaments and biological substances
CPT/HCPCS: 96365; 96366; 96375; J2350; J2930

== ENCOUNTER → 2023-01-09 | Outpatient (CLI) | payer OTHER ==
[~2023-01-09] MED LIST changes: -ACETAMINOPHEN TAB 650MG DOSE (2X325MG) PO ONE; -K-TA10TA PO; -LOSA100T45 PO; +LOSA100T46 PO; -OCRELIZUMAB 600 MG in NS 500 ML IV ONE; +POTA-164 PO; -diphenhydrAMINE 25MG CAP PO ONE; -methylPREDNISolone 125MG 2ML VIAL IV ONE
== END ==
LOC: M SOG 08:00
PROVIDERS: ATTEND Orthopaedic Surgery
DX: M54.2 Cervicalgia (principal)

== ENCOUNTER → 2023-05-31 | Outpatient (CLI) | payer MEDICARE, MEDICAID | LOC: M PLAIMG 12:36 | PROVIDERS: ATTEND Internal Medicine Cardiovascular Disease | DX: I50.32 Chronic diastolic (congestive) heart failure (principal); I27.23 Pulmonary hypertension due to lung diseases and hypoxia; R01.1 Cardiac murmur, unspecified ==

== ENCOUNTER 2023-10-03 09:00 | Outpatient (CLI) | payer MEDICARE, MEDICAID ==
[~2023-10-03] VITALS: Ht 152.4 cm; Wt 130.0 kg
[2023-10-03 09:05] VITALS: BP 151/68; O2SAT 99
[2023-10-03] MEDS: ACETAMINOPHEN TAB 650MG DOSE (2X325MG) PO ONE (09:19)
[2023-10-03] MEDS: methylPREDNISolone 125MG 2ML VIAL IV ONE (09:19)
[2023-10-03] MEDS: diphenhydrAMINE 25MG CAP PO ONE (09:19)
[2023-10-03] MEDS: OCRELIZUMAB 600 MG in NS 500 ML IV ONE (10:08)
[2023-10-03 10:45] VITALS: BP 134/62; O2SAT 98
[2023-10-03 11:15] VITALS: BP 133/69; O2SAT 98
[2023-10-03 12:05] VITALS: BP 147/64; O2SAT 97
== END 2023-10-03 12:20 ==
LOC: M INFU 09:00
PROVIDERS: ATTEND Psychiatry & Neurology Neurology
DX: G35 Multiple sclerosis (principal); Z88.8 Allergy status to other drugs, medicaments and biological substances

== ENCOUNTER 2023-10-03 12:25 | Emergency (ER) | payer MEDICARE, MEDICAID ==
[2023-10-03 14:24] VITALS: BP 139/62; TEMP 98; O2SAT 97
== END 2023-10-03 14:43 | disposition home or self-care (01) ==
LOC: M ED 12:25
DX: R21 Rash and other nonspecific skin eruption (principal); T50.995A Adverse effect of other drugs, medicaments and biological substances, initial encounter; E11.9 Type 2 diabetes mellitus without complications; E66.9 Obesity, unspecified; I10 Essential (primary) hypertension; E78.5 Hyperlipidemia, unspecified; G35 Multiple sclerosis; Z86.79 Personal history of other diseases of the circulatory system; Z88.8 Allergy status to other drugs, medicaments and biological substances; Z79.811 Long term (current) use of aromatase inhibitors; Z79.899 Other long term (current) drug therapy
CPT/HCPCS: 96365; 96366; 96367; 99284; J2350; J2919

== ENCOUNTER → 2024-11-15 | Outpatient (CLI) | payer MEDICARE, MEDICAID ==
[~2024-11-15] MED LIST changes: +AMLO-751 PO; -AMLO10TA PO
== END ==
LOC: M EKG 11:24
PROVIDERS: ATTEND Physician Assistant
DX: R00.2 Palpitations (principal)